=== PATIENT | female | born 1975 | race Caucasian/White ===

== ENCOUNTER 2023-03-19 16:37 | Emergency (ER) | payer OTHER, SELFPAY ==
[2023-03-19 16:52] VITALS: BP 119/64; PULSE 94; RESP 14; TEMP 36.1; O2SAT 99
[2023-03-19 17:30] LABS: Basophils Absolute Auto 0.1 K/mm3 (0.0-0.1); Basophils Percent Auto 0.3 % (0.2-1.2); Eosinophils Percent Auto 0.1 % (0-4.4); Hematocrit 48.5 % (37.0-47.0); Immature Granulocyte Percent A 0.7 % (0-0.5); Lymphocytes Absolute Auto 3.28 K/mm3 (0.9-3.2); Lymphocytes Percent Auto 22.5 % (18.3-44.2); Mean Corpuscular Hemoglobin 29.9 pg (26-34); Mean Corpuscular Volume 90.5 fl (80-100); Mean Platelet Volume 12.5 fl (7.4-10.4); Monocytes Absolute Auto 0.8 K/mm3 (0.1-0.6); Monocytes Percent Auto 5.6 % (2.6-8.5); Neutrophils Absolute Auto 10.3 K/mm3 (1.3-6.7); Neutrophils Percent Auto 70.8 % (45.5-73.1); Platelet Count Result 196 k/mm3 (150-375); Red Blood Count 5.36 M/mm3 (4.2-5.4); Red Cell Distribution Width 13.8 % (11.5-14.5); White Blood Count 14.6 K/mm3 (4.5-10.0)
[2023-03-19 18:00] LABS: Alanine Aminotransferase 16 U/L (6-35); Albumin Level 4.4 g/dL (3.5-5.1); Alkaline Phosphatase 56 U/L (38-126); Anion Gap 6 mmol/L (8-16); Aspartate Amino Transferase 18 U/L (14-36); Bilirubin,Total 0.6 mg/dL (0.2-1.3); Blood Urea Nitrogen 15 mg/dL (7-17); Calcium 9.7 mg/dL (8.4-10.2); Carbon Dioxide 33 mmol/L (22-30); Chloride 101 mmol/L (98-107); Estimated CRCL calculation 69 ml/min; Estimated Glomerular Filt Rate > 60; Glucose 89 mg/dL (65-110); Potassium 3.4 mmol/L (3.4-5.0); Sodium 140 mmol/L (137-145)
[2023-03-19 18:01] LABS: Ethanol < 10 mg/dL (<10)
--- NOTE | 2023-03-19 19:16 | ED.PSYCH ---
HPI - Psych General Chief Complaint: Psychiatric Symptoms Stated Complaint: Suicidal Time Seen by Provider: 03/19/23 19:03 History of Present Illness HPI Narrative: Patient is a 47-year-old female with history of bipolar and asthma here with suicidal ideation. Patient states she has been passively suicidal for the last 1 year. She recently established with a therapist, has not discussed her suicidal ideation with this therapist. She notes that her suicidal ideation has gone from passive to active and she has now developed a plan. She notes that she would overdose on medications or slit her wrists to kill herself. She denies any recent increase in home stressors, has been compliant with her medications. No attempts to kill herself. Denies any homicidal ideation. She has had multiple prior suicide attempts with psychiatric hospitalizations in the past. She denies any cough, congestion, fever, chills, diarrhea, abdominal pain, urinary symptoms. Her asthma has been well controlled. Related Data Allergies Allergy/AdvReac Type Severity Reaction Status Date / Time No Known Allergies Allergy Verified 03/19/23 17:11 Review of Systems Review of Systems: All systems reviewed & are unremarkable except as noted in HPI and below PMFSH Social History Social History Substance use type: does not use Exam Narrative: GENERAL: Well-appearing, well-nourished, and in no acute distress. HEAD: Normocephalic, atraumatic. EYES: PERRLA and EOMI. ENT: Nares clear. Mucous membranes moist. NECK: Supple. CHEST: Clear to auscultation. No respiratory distress. HEART: Regular rate and rhythm. Normal peripheral pulses. ABDOMEN: Soft, nontender, nondistended. EXTREMITIES: Normal range of motion. No edema. SKIN: Warm, dry, no rash. NEURO: No focal deficits. Alert and oriented x3. PSYCH: Withdrawn, flat affect, suicidal ideation, no homicidal ideation Course Course Emergency Course: Chart review performed. Patient here with SI with a plan to slit her wrists. Chart notes history of Bipolar. No prior visits in our system. Triage lab work shows WBC of 14.6, normal electrolytes, normal TSH, ETOH of <10. Patient seen evaluated, nontoxic appearing. No physical complaints, she does have acted suicidal ideation with a plan. She does note that she would like to be voluntary psychiatric hospitalization. No flu-like symptoms, no signs or symptoms of infection, do not believe she has an infectious source at this time that her white blood cell count can be attributed to. Awaiting urine and COVID swab for medical clearance. Urine borderline for UTI however many squamous cells are present. Patient again denies any symptoms. Will forego treatment at this time. Patient medically cleared, will contact crisis center. Patient accepted to [facility] by Dr. Morse. EMS to transport. Vital Signs Vital signs: Vital Signs Temperature 97.0 F L 03/19/23 16:52 Pulse Rate 94 03/19/23 16:52 Respiratory Rate 14 03/19/23 16:52 Blood Pressure 119/64 03/19/23 16:52 Pulse Oximetry 99 03/19/23 16:52 Oxygen Delivery Room Air 03/19/23 16:52 Temperature 97.6 F 03/20/23 03:58 Pulse Rate 87 03/20/23 03:58 Respiratory Rate 13 03/20/23 03:58 Blood Pressure 97/60 L 03/20/23 03:58 Pulse Oximetry 97 03/20/23 03:58 Oxygen Delivery Room Air 03/19/23 16:52 [facility] - Psych Lab Data 03/19/23 17:25 03/19/23 17:25 Labs: Lab Results 03/19/23 03/19/23 03/19/23 Range/Units 17:25 20:32 20:39 WBC 14.6 H (4.5-10.0) K/mm3 RBC 5.36 (4.2-5.4) M/mm3 Hgb 16.0 H (12.0-15.0) g/dL Hct 48.5 H (37.0-47.0) % MCV 90.5 (80-100) fl MCH 29.9 (26-34) pg MCHC 33.0 (32-36) g/dl RDW 13.8 (11.5-14.5) % Plt Count 196 (150-375) k/mm3 MPV 12.5 H (7.4-10.4) fl Immature Gran % (Auto) 0.7 H (0-0.5) % Neut % (Auto) 70.8 (45.5-73.1) %
[2023-03-19 19:19] VITALS: BP 91/59; PULSE 88; O2SAT 95
--- NOTE | 2023-03-19 20:49 | PC.NURSE ---
stated pt could have personal inhaler to use.
[2023-03-19 21:02] LABS: Amphetamine Screen Urine Negative (Negative); Barbiturate Screen Urine Negative (Negative); Benzodiazepines Screen Urine Negative (Negative); Cannabinoid Screen Urine Negative (Negative); Cocaine Screen Urine Negative (Negative); Methadone Screen Urine Negative (Negative); Opiate Screen Urine Negative (Negative); Phencyclidine Screen Urine Negative (Negative)
[2023-03-19 21:16] LABS: Appearance Urine Turbid (Clear); Bacteria Urine 3+ /hpf; Bilirubin Urine Negative (Negative); Blood Urine Negative (Negative); Color Urine Dark Yellow (Yellow); Glucose Urine UA Negative (Negative); Ketones Urine Negative (Negative); Leukocyte Esterase Ur Negative LEU/UL (Negative); Need Manual Microscopic Reviewed; Nitrate Urine Negative (Negative); Non Pathogenic Casts 0-2; Protein Urine Trace mg/dL (Negative); Specific Grav Ur 1.023 (1.001-1.035); Squamous Epithelial Cell Urine Moderate /hpf (Few); pH Urine 6.5 (5.0-9.0)
[2023-03-19 21:16] LABS: Influenza A QL RT-PCR Negative (Negative); Influenza B QL RT-PCR Negative (Negative); RSV RNA, RT-PCR Negative (Negative); SARS-CoV-2 RNA PCR Negative (Negative)
[2023-03-19 21:21] LABS: Add Urine Microscopic? YES
--- NOTE | 2023-03-20 02:51 | PC.NURSE ---
PT accepted at [facility] at this time. This RN gave nurse to nurse report to Esther JOHNSON @[phone].
[2023-03-20 03:58] VITALS: BP 97/60; PULSE 87; RESP 13; TEMP 36.4; O2SAT 97
== END 2023-03-20 04:01 ==
PROVIDERS: Emergency Medicine; Emergency Provider Student in an Organized Health Care Education/Training Program; PCP Internal Medicine
DX: R45.851 Suicidal ideations (principal); Z11.52 Encounter for screening for COVID-19; F31.9 Bipolar disorder, unspecified; J45.909 Unspecified asthma, uncomplicated
CPT/HCPCS: 36415; 80053; 80307; 81001; 81025; 84443; 85025; 87086; 87088; 87637; 99285

== ENCOUNTER 2023-04-01 09:04 | Emergency (ER) | payer OTHER, SELFPAY ==
--- NOTE | ~2023-04-01 | CT_ITS ---
EXAMINATION: CT abdomen pelvis w con DATE: 04/01/2023 09:57 INDICATION: Right upper quadrant abdominal pain. Epigastric abdominal pain. TECHNIQUE: Computed tomography (CT) of the abdomen and pelvis was performed with 100 mL Omnipaque 350 intravenous contrast. Automated exposure control and iterative reconstruction technique were employe d. The dose-length product was 403.43 mGy-cm. COMPARISON: None. FINDINGS: The visualized portions of the lung bases demonstrate mild atelectasis. No pleural effusion . The heart size is normal. No pericardial effusion. There is mild intrahepatic biliary duct dilatati on, likely secondary to cholecystectomy. The spleen, pancreas, adrenal glands, and kidneys are normal . There are no dilated loops of bowel. The appendix is normal. There is mild aortic atherosclerosis. There are no pathologically enlarged lymph nodes. There is no free intraperitoneal fluid. There is mi ld lumbar spondylosis. IMPRESSION: 1. No etiology for the patient's symptoms. Reviewed, dictated and finalized at location [facility]. [facility]
[2023-04-01 09:10] VITALS: BP 113/66; PULSE 82; RESP 20; TEMP 37; O2SAT 97
--- NOTE | 2023-04-01 09:15 | ED.GENADULT ---
HPI - General Adult General Chief complaint: Abdominal Pain <Naveed Jeong PA-C - Last Filed: 04/01/23 18:19> Stated complaint: right upper abdominal pain/nausea <FEI Kent Last Filed: 04/01/23 18:19> Time Seen by Provider: 04/01/23 09:09 <Naveed Jeong PA-C - Last Filed: 04/01/23 18:19> Source: patient <FEI Kent Last Filed: 04/01/23 18:19> Mode of arrival: ambulatory <Naveed Jeong PA-C - Last Filed: 04/01/23 18:19> Limitations: no limitations <FEI Kent Last Filed: 04/01/23 18:19> History of Present Illness HPI narrative: This is a 47-year-old female who presents to the ED with chief complaint of right upper quadrant pain beginning 1 week ago and her stay. Reports that she had episodes vomiting yesterday days diarrhea as well. She states that she was recently admitted to to [facility] for psychiatry. She has not been on any recent antibiotics. She does note that states change her Abilify to lithium And Vraylar. Denies fevers, chills, flank pain, chest pain, shortness of breath, cough. Reports remote surgical history of cholecystectomy 24 years ago <Naveed Jeong PA-C - Last Filed: 04/01/23 18:19> Related Data Allergies/adverse reactions: Allergies Allergy/AdvReac Type Severity Reaction Status Date / Time No Known Allergies Allergy Verified 04/01/23 09:17 <Naveed Jeong PA-C - Last Filed: 04/01/23 18:19> Review of Systems Review of Systems: All systems as dictated in HPI <FEI Kent Last Filed: 04/01/23 18:19> PMFSH Social History Social History: Social History Substance use type: does not use <FEI Kent Last Filed: 04/01/23 18:19> Exam Narrative: GENERAL: Well-appearing, well-nourished, and in no acute distress. HEAD: Normocephalic, atraumatic. EYES: PERRLA and EOMI. ENT: Nares clear, no rhinorrhea or epistaxis. Mucous membranes moist. Oropharynx without tonsillar hypertrophy exudate or other lesions. NECK: Supple. No adenopathy or masses. CHEST: No respiratory distress. Clear to auscultation. No wheezes rales or rhonchi HEART: Regular rate and rhythm. No murmur heard. Normal peripheral pulses. ABDOMEN: mildly tender epigastrium. Soft, Otherwise nontender, nondistended, normal active bowel sounds. negative peritoneal signs. MSK: Normal range of motion. No edema. SKIN: Warm, dry, no rash. NEURO: Alert and oriented x3. No focal deficits. PSYCH: Normal mood and affect. <Naveed Jeong PA-C - Last Filed: 04/01/23 18:19> Course MOBILITY MANAGER/PA Physician Supervision This visit was performed by both a physician and an APC. I performed all aspects of the MDM as documented. <Jadyn Wilkes MD - Last Filed: 04/01/23 18:59> Vital Signs Vital signs: Vital Signs Temperature 98.6 F 04/01/23 09:10 Pulse Rate 82 04/01/23 09:10 Respiratory Rate 20 04/01/23 09:10 Blood Pressure 113/66 04/01/23 09:10 Pulse Oximetry 97 04/01/23 09:10 Oxygen Delivery Room Air 04/01/23 09:10 Temperature 98.6 F 04/01/23 09:10 Pulse Rate 82 04/01/23 09:10 Respiratory Rate 20 04/01/23 09:10 Blood Pressure 113/66 04/01/23 09:10 Pulse Oximetry 97 04/01/23 09:10 Oxygen Delivery Room Air 04/01/23 09:10 <Naveed Jeong PA-C - Last Filed: 04/01/23 18:19> Vital Signs Temperature 98.6 F 04/01/23 09:10 Pulse Rate 82 04/01/23 09:10 Respiratory Rate 20 04/01/23 09:10 Blood Pressure 113/66 04/01/23 09:10 Pulse Oximetry 97 04/01/23 09:10 Oxygen Delivery Room Air 04/01/23 09:10 Temperature 98.6 F 04/01/23 09:10 Pulse Rate 82 04/01/23 09:10 Respiratory Rate 20 04/01/23 09:10 Blood Pressure 113/66 04/01/23 09:10 Pulse Oximetry 97 04/01/23 09:10 Oxygen Delivery Room Air 04/01/23 09:10 <Jadyn Wilkes MD - Last Filed: 04/01/23 18:59> Medical Decision Making MDM Narrative Medical decision making narrative:
[2023-04-01 09:27] LABS: Hematocrit 46.3 % (37.0-47.0); Hemoglobin 15.8 g/dL (12.0-15.0); Mean Corpuscular HGB Conc 34.1 g/dl (32-36); Mean Corpuscular Hemoglobin 30.1 pg (26-34); Mean Corpuscular Volume 88.2 fl (80-100); Mean Platelet Volume 12.5 fl (7.4-10.4); Platelet Count Result 242 k/mm3 (150-375); Red Blood Count 5.25 M/mm3 (4.2-5.4); Red Cell Distribution Width 13.3 % (11.5-14.5); White Blood Count 17.9 K/mm3 (4.5-10.0)
[2023-04-01 09:34] LABS: Bacteria Urine Rare /hpf; Non Pathogenic Casts 0-2; RBC Urine >100 /hpf (0-2); Squamous Epithelial Cell Urine Few /hpf (Few); WBC Urine 21-50 /hpf
[2023-04-01 09:38] LABS: Alanine Aminotransferase 16 U/L (6-35); Albumin Level 4.6 g/dL (3.5-5.1); Alkaline Phosphatase 54 U/L (38-126); Anion Gap 11 mmol/L (8-16); Aspartate Amino Transferase 16 U/L (14-36); Bilirubin,Total 0.6 mg/dL (0.2-1.3); Blood Urea Nitrogen 6 mg/dL (7-17); Calcium 9.7 mg/dL (8.4-10.2); Carbon Dioxide 26 mmol/L (22-30); Chloride 101 mmol/L (98-107); Estimated CRCL calculation 78 ml/min; Estimated Glomerular Filt Rate > 60; Glucose 115 mg/dL (65-110); Lipase 126 U/L (23-300); Potassium 3.4 mmol/L (3.4-5.0); Sodium 138 mmol/L (137-145)
[2023-04-01 09:40] LABS: Appearance Urine Turbid (Clear); Bilirubin Urine Negative (Negative); Blood Urine 3+ (Negative); Color Urine Red (Yellow); Glucose Urine UA Negative (Negative); Ketones Urine Negative (Negative); Leukocyte Esterase Ur 2+ LEU/UL (Negative); Nitrate Urine Negative (Negative); Protein Urine 1+ mg/dL (Negative); Specific Grav Ur 1.009 (1.001-1.035); Urobilinogen Urine 0.2 mg/dL (<2.0); pH Urine 7.5 (5.0-9.0)
[2023-04-01] MEDS: ONDANSETRON INJ 4 MG/2 ML VIAL IV PUSH (09:45)
[2023-04-01] MEDS: MORPHINE SULFATE (*CRX) 4 MG/ML INJ IV PUSH (09:45)
[2023-04-01 09:46] LABS: Add Urine Microscopic? YES
[2023-04-01 10:04] LABS: Band Neutrophils Percent 5 % (0-6); Lymphocytes Absolute Manual 2.14 K/mm3 (1.1-4.5); Lymphocytes Percent Manual 12 % (18-44); Monocytes Absolute Manual 1.25 K/mm3 (0.1-0.90); Monocytes Percent Manual 7 % (3-9); Neutrophils Absolute Manual 14.49 K/mm3 (1.7-7.2); Neutrophils Percent Manual 76 % (46-73); Total Cells Counted 100
[2023-04-01 10:05] LABS: Large Platelets Present; Platelet Estimate Adequate (Adequate); Schistocytes None Seen (NORMAL)
== END 2023-04-01 11:08 | disposition home or self-care (01) ==
PROVIDERS: Student in an Organized Health Care Education/Training Program; Emergency Provider Physician Assistant; PCP Internal Medicine
DX: K52.9 Noninfective gastroenteritis and colitis, unspecified (principal); N39.0 Urinary tract infection, site not specified; Z90.49 Acquired absence of other specified parts of digestive tract
CPT/HCPCS: 36415; 74177; 80053; 81001; 81025; 83690; 85025; 87086; 87088; 96365; 96375; 99284; J0696; J2270; J2405; Q9967

== ENCOUNTER 2023-05-18 04:08 | Emergency (ER) | payer OTHER, SELFPAY ==
[2023-05-18] VITALS (13 sets, daily range): BP systolic 97–133; BP diastolic 50–80; PULSE 70–100; RESP 16–24; TEMP 36.4–36.9; O2SAT 95–100
--- NOTE | ~2023-05-18 | XR_ITS ---
Clinical Indication: Shortness of breath PA and lateral views of the chest: Comparison: None Findings: The lungs are clear, without evidence of focal consolidation or pleural effusion. Cardiome diastinal silhouette is within normal limits. Bones and soft tissues are unremarkable. Impression: Normal chest. Reviewed, dictated and finalized at [facility]. ER DRIVER Impression: Normal chest.
--- NOTE | 2023-05-18 04:16 | ECG_ITS ---
Measurements Intervals [place] Rate: 100 P: 70 MA: 149 QRS: 64 QRSD: 102 T: 70 QT: 335 QTc: 433 Interpretive Statements SINUS TACHYCARDIA INCOMPLETE RIGHT BUNDLE BRANCH BLOCK NONSPECIFIC ST & T-WAVE ABNORMALITY- DIFFUSE LEADS BASELINE WANDER- II, III, AVL, AVF BORDERLINE ECG NO PREVIOUS ECG AVAILABLE FOR COMPARISON Electronically Signed On 05-18-2023 10:26:15 [employer] by Blaise Perez D.O.
[2023-05-18 04:39] LABS: Basophils Absolute Auto 0.1 K/mm3 (0.0-0.1); Basophils Percent Auto 0.4 % (0.2-1.2); Eosinophils Percent Auto 0.1 % (0-4.4); Hematocrit 48.9 % (37.0-47.0); Hemoglobin 16.2 g/dL (12.0-15.0); Immature Granulocyte Absolute 0.05 K/mm3 (0.00-0.031); Immature Granulocyte Percent A 0.4 % (0-0.5); Lymphocytes Absolute Auto 3.08 K/mm3 (0.9-3.2); Lymphocytes Percent Auto 22.7 % (18.3-44.2); Mean Corpuscular HGB Conc 33.1 g/dl (32-36); Mean Corpuscular Hemoglobin 29.8 pg (26-34); Mean Corpuscular Volume 90.1 fl (80-100); Mean Platelet Volume 12.9 fl (7.4-10.4); Neutrophils Absolute Auto 9.4 K/mm3 (1.3-6.7); Neutrophils Percent Auto 69.4 % (45.5-73.1); Platelet Count Result 223 k/mm3 (150-375); Red Blood Count 5.43 M/mm3 (4.2-5.4); Red Cell Distribution Width 12.8 % (11.5-14.5); White Blood Count 13.6 K/mm3 (4.5-10.0)
[2023-05-18 04:50] LABS: INR 0.9; Prothrombin Time 12.9 Seconds (11.1-14.7)
[2023-05-18 04:51] LABS: Alanine Aminotransferase 13 U/L (6-35); Albumin Level 4.3 g/dL (3.5-5.1); Alkaline Phosphatase 55 U/L (38-126); Anion Gap 11 mmol/L (8-16); Aspartate Amino Transferase 15 U/L (14-36); Bilirubin,Total 0.3 mg/dL (0.2-1.3); Blood Urea Nitrogen 8 mg/dL (7-17); Calcium 9.5 mg/dL (8.4-10.2); Carbon Dioxide 21 mmol/L (22-30); Chloride 104 mmol/L (98-107); Estimated CRCL calculation 87 ml/min; Estimated Glomerular Filt Rate > 60; Glucose 97 mg/dL (65-110); Lipase 107 U/L (23-300); Potassium 3.4 mmol/L (3.4-5.0); Sodium 136 mmol/L (137-145)
[2023-05-18 04:52] LABS: Partial Thromboplastin Time 32.5 SECONDS (22.3-36.8)
[2023-05-18 05:03] LABS: Troponin I < 0.012 ng/mL (0.000-0.034)
[2023-05-18 05:15] LABS: Influenza A QL RT-PCR Negative (Negative); Influenza B QL RT-PCR Negative (Negative); RSV RNA, RT-PCR Negative (Negative); SARS-CoV-2 RNA PCR Negative (Negative)
--- NOTE | 2023-05-18 05:25 | ED.GENADULT ---
HPI - General Adult General Chief complaint: Chest Pain <Catarino Carter MD - Last Filed: 05/18/23 07:18> Stated complaint: cp <Catarino Carter MD - Last Filed: 05/18/23 07:18> Time Seen by Provider: 05/18/23 04:10 <Catarino Carter MD - Last Filed: 05/18/23 07:18> History of Present Illness HPI narrative: This is a 47-year-old female presenting with 4 days of chest pain. Cervical she was watching TV. She says is a achy chest pressure in the center of her chest. Nonradiating 10 out 10 intensity and fluctuating but always there. She has never had pain like this before there are no exacerbating or alleviating symptoms. She says it hurts to push on but feels better if she holds slight pressure against it. She denies nausea vomiting diaphoresis exertion shortness of breath fever chills or cough. No trauma. <Catarino Carter MD - Last Filed: 05/18/23 07:18> Related Data Allergies/adverse reactions: Allergies Allergy/AdvReac Type Severity Reaction Status Date / Time No Known Allergies Allergy Verified 05/18/23 04:16 <Catarino Carter MD - Last Filed: 05/18/23 07:18> [facility] Past Medical History Medical History: Medical History Asthma Bipolar 1 disorder Depression <Catarino Carter MD - Last Filed: 05/18/23 07:18> Social History Social History: Social History Substance use type: does not use <Catarino Carter MD - Last Filed: 05/18/23 07:18> Exam Narrative: APPEARANCE: No apparent distress. Head: atraumatic. EYES: EOMI, NOSE: Atraumatic NECK: Trachea midline RESPIRATORY: No increased rate of breathing, clear to auscultation CARDIOVASCULAR: RRR, reproducible chest wall tenderness in the right parasternal area ABDOMINAL: Non-distended soft nontender normal MUSCULOSKELETAl: No obvious deformities NEURO: Alert. Moving 4/4 extremities SKIN:: Warm, dry. Normal color PSYCHIATRIC: Normal affect <Catarino Carter MD - Last Filed: 05/18/23 07:18> Course Reevaluation(s) Reevaluation #1: CURRENTLY PATIENT IS ASYMPTOMATIC. PATIENT WAS SIGNED OUT TO ME EARLY TODAY, WAITING FOR 2ND TROP. NEGATIVE RESULT PATIENT CAN GO HOME. <mAy Dixon MD - Last Filed: 05/18/23 10:32> Date: 05/18/23 <Amy Dixon MD - Last Filed: 05/18/23 10:32> Time: 10:31 <Amy Dixon MD - Last Filed: 05/18/23 10:32> Vital Signs Vital signs: Vital Signs Temperature 36.6 C 05/18/23 04:11 Pulse Rate 100 05/18/23 04:11 Respiratory Rate 20 05/18/23 04:11 Blood Pressure 133/80 05/18/23 04:11 Pulse Oximetry 100 05/18/23 04:11 Oxygen Delivery Room Air 05/18/23 04:11 Temperature 36.9 C 05/18/23 09:01 Pulse Rate 70 05/18/23 09:01 Respiratory Rate 24 H 05/18/23 09:01 Blood Pressure 103/50 L 05/18/23 09:01 Pulse Oximetry 99 05/18/23 09:01 Oxygen Delivery Room Air 05/18/23 08:24 <Catarino Carter MD - Last Filed: 05/18/23 07:18> Vital Signs Temperature 36.6 C 05/18/23 04:11 Pulse Rate 100 05/18/23 04:11 Respiratory Rate 20 05/18/23 04:11 Blood Pressure 133/80 05/18/23 04:11 Pulse Oximetry 100 05/18/23 04:11 Oxygen Delivery Room Air 05/18/23 04:11 Temperature 36.9 C 05/18/23 09:01 Pulse Rate 70 05/18/23 09:01 Respiratory Rate 24 H 05/18/23 09:01 Blood Pressure 103/50 L 05/18/23 09:01 Pulse Oximetry 99 05/18/23 09:01 Oxygen Delivery Room Air 05/18/23 08:24 <Amy Dixon MD - Last Filed: 05/18/23 10:32> Medical Decision Making MDM Narrative Medical decision making narrative: -Course: 47-year-old female presenting with chest pain and pressure. It is reproducible on palpation. Given Motrin Tylenol with some improvement. Laboratory studies including troponin D-dimer were negative. Chest x-ray unremarkable. EKG normal. Patient will be discharged on a trial of
[2023-05-18 05:36] LABS: D Dimer < 0.27 ug/mL (<0.48)
[2023-05-18] MEDS: ACETAMINOPHEN 500 MG TABLET 1000 MG PO (05:43)
[2023-05-18] MEDS: KETOROLAC 15 MG/ML VIAL (*BKC) IV PUSH (05:44)
[2023-05-18 06:07] LABS: NT Pro B Type Natriuretic Pept 78 pg/mL (19.9-100)
[2023-05-18] MEDS: methocarbamoL 750 MG TABLET 1500 MG PO (07:04)
--- NOTE | 2023-05-18 07:10 | PC.NURSE ---
Report given to ELIZABETH Recio at this time.
--- NOTE | 2023-05-18 07:45 | ECG_ITS ---
Measurements Intervals [place] Rate: 69 P: 66 ID: [id number] QRS: 56 QRSD: 98 T: 48 QT: 403 QTc: 432 Interpretive Statements SINUS RHYTHM INCOMPLETE RIGHT BUNDLE BRANCH BLOCK BORDERLINE T WAVE ABNORMALITY- ANTERIOR LEADS BASELINE ARTIFACT- I, II, AVR, AVL, AVF BORDERLINE ECG COMPARED TO ECG 05/18/2023 04:16:49 SINUS RHYTHM NOW PRESENT Electronically Signed On 05-18-2023 8:07:26 HEAD OF BIOLOGY by Blaise Perez D.O.
[2023-05-18 08:22] LABS: Troponin I < 0.012 ng/mL (0.000-0.034)
--- NOTE | 2023-05-18 10:16 | PC.NURSE ---
stated repeat EKG and 6hr trop not needed.
== END 2023-05-18 10:43 | disposition home or self-care (01) ==
PROVIDERS: Emergency Medicine; Emergency Provider Emergency Medicine; PCP Internal Medicine
DX: R07.89 Other chest pain (principal); Z20.822 Contact with and (suspected) exposure to COVID-19
CPT/HCPCS: 36415; 71046; 80053; 83690; 83880; 84484; 85025; 85380; 85610; 85730; 87637; 93005; 96374; 99284; A9270; J1885